=== PATIENT | male | born 1930 | race Caucasian/White ===

== ENCOUNTER 2018-10-01 07:35 | Emergency (ER) | payer SELFPAY ==
[~2018-10-01] VITALS: Ht 165.1 cm; Wt 74.4 kg
[2018-10-01 07:40] VITALS: Ht 165.1 cm; Wt 74.4 kg
[2018-10-01 10:08] VITALS: BP 125/71
== END 2018-10-01 10:09 | disposition home or self-care (01) ==
LOC: ED 07:35
DX: B02.9 Zoster without complications (principal); I10 Essential (primary) hypertension; Z88.0 Allergy status to penicillin